=== PATIENT | male | born 1965 ===

== ENCOUNTER 2024-01-31 22:16 | Emergency (ER) | payer OTHER ==
[~2024-01-31] VITALS: Ht 175.3 cm; Wt 117.9 kg
[2024-01-31] MEDS ORDERED: LORazepam 2 MG/ML 1ML Injection IV ONE (22:50)
[2024-02-01] MEDS ORDERED: HYDROmorphone HCl/Pf 1MG SYR ONE (01:07)
[2024-02-01] MEDS ORDERED: Ketorolac Tromethamine 30mg Vial ONE (05:43)
[2024-02-01 07:59] VITALS: BP 142/82
[2024-02-01] MEDS ORDERED: OxyCODONE 5 mg/Acetamin 325 mg TABLET PO ONE (10:45)
== END 2024-02-01 14:20 | disposition home or self-care (01) ==
LOC: ER 22:16
DX: S43.101A Unspecified dislocation of right acromioclavicular joint, initial encounter (principal); S22.41XA Multiple fractures of ribs, right side, initial encounter for closed fracture; T14.8XXA Other injury of unspecified body region, initial encounter; V19.9XXA Pedal cyclist (driver) (passenger) injured in unspecified traffic accident, initial encounter
CPT/HCPCS: 70450; 71260; 72125; 73030; 74177; 96374; 96375; 99284-25; A9270; J1170; J1885; J2060; Q9967